=== PATIENT | male | born 1990 | race Hispanic/Latino ===

== ENCOUNTER 2019-12-26 12:56 | Inpatient (IN) | payer SELFPAY ==
--- OUTSIDE RECORDS SUMMARY | 2019-12-26 13:09 | XMS REPORT | Continuity of Care Document ---
:[address] [facility] t Address [address] [place] [address] [place] [id number] Care Team Providers Name Role Phone Unavailable Unavailable Unavailable Problems This patient has no known problems. Allergies, Adverse Reactions, Alerts This patient has no known allergies or adverse reactions. Medications This patient has no known medications. Procedures This patient has no known procedures. Results This patient has no known results.
[2019-12-26] MEDS ORDERED: VANCOMYCIN 1.5 GM in NA CHLORIDE 0.9% 500 ML IVPB ONE (14:15)
--- NOTE | 2019-12-26 14:41 | RAD REPORT ---
EXAM DESCRIPTION: USExtremity Venous Uni Ltd12/26/2019 2:22 pm CLINICAL HISTORY: left leg pain and swelling. COMPARISON: None. FINDINGS: Echogenic material consistent with thrombus is present within the left popliteal vein. The re is diminished blood flow. The Left common femoral, superficial femoral,and posterior tibial veins are compressible and demonst rate augmentation. Doppler demonstrates good flow. IMPRESSION: Acute/subacute thrombus left popliteal vein
--- NOTE | 2019-12-26 14:41 | RAD REPORT ---
EXAM DESCRIPTION: Christi Faulkner Left12/26/2019 2:29 pm CLINICAL HISTORY: Left leg swelling FINDINGS: No fracture is seen. Edema within soft tissue
[2019-12-26 14:51] LABS: Absolute Lymphocytes (CBC) 2.1 K/uL (0.7-4.9); Basophils % 0.4 % (0-1.3); Hematocrit 47.1 % (39.6-49.0); Lymphocytes % 20.4 % (15.3-44.8); MPV 8.7 fL (7.6-11.3); RBC Red Blood Cell Count 5.51 M/uL (4.33-5.43)
[2019-12-26 14:56] LABS: Protime INR 0.99
[2019-12-26 15:27] LABS: ALT/SGPT 33 U/L (12-78); AST/SGOT 18 U/L (15-37); Alkaline Phosphatase 74 U/L (45-117); BUN Blood Urea Nitrogen 14 mg/dL (7-18); Bicarbonate 30 mmol/L (21-32); Bilirubin Direct < 0.1 mg/dL (0-0.2); Bilirubin Total 0.4 mg/dL (0.2-1.0); Creatine Phosphokinase 194 U/L (39-308); Glucose Level 90 mg/dL (74-106); Potassium 3.9 mmol/L (3.5-5.1); Protein, Total 8.7 g/dL (6.4-8.2); Sodium Level 141 mmol/L (136-145)
--- NOTE | 2019-12-26 15:36 | EDPHYS ---
Physician Documentation [facility] Name: Oniel Arita Age: 29 yrs Sex: Male : 1990 Arrival Date: 12/26/2019 Time: 13:00 Bed 20 Private MD: Joshua Calabrese HPI: 12/25 14:11 This 29 yrs old Male presents to ER via Ambulatory with complaints of Leg snw Swelling. 14:11 The patient presents with swelling, tenderness, drainage from ulceration over past few snw months. The complaints affect the left medial ankle. Context: The problem was sustained at home, resulted from possible a hematoma in Jun. Seen per MD in [place], told he had a blood clot and put him on anticoagulants. Area never improved and then started draining. Denies trauma. Onset: The symptoms/episode began/occurred gradually, 6 month(s) ago. Associated signs and symptoms: Pertinent positives: ulceration with black eschar with drainage beginning 2 months ago. Severity of symptoms: At their worst the symptoms were mild. The patient has not experienced similar symptoms in the past. It is unknown whether or not the patient has recently seen a physician. pt states Td up to date. Historical: - Allergies: 13:43 No Known Allergies; tw2 - Home Meds: 13:43 None [Active]; tw2 - PMHx: 13:43 None; tw2 - PSHx: 13:43 cervical mass removed 11 years ago; tw2 - Immunization history:: Adult Immunizations up to date, Last tetanus immunization: up to date. - Social history:: Smoking status: Patient reports the use of cigarette tobacco products, "i pk every 3 days, i have cut down". ROS: 14:14 Constitutional: Negative for fever, chills, and weight loss, Eyes: Negative for injury, snw pain, redness, and discharge, ENT: Negative for injury, pain, and discharge, Neck: Negative for injury, pain, and swelling, Cardiovascular: Negative for chest pain, palpitations, and edema, Respiratory: Negative for shortness of breath, cough, wheezing, and pleuritic chest pain, Abdomen/GI: Negative for abdominal pain, nausea, vomiting, diarrhea, and constipation, Back: Negative for injury and pain, : Negative for injury, bleeding, discharge, and swelling, MS/Extremity: Negative for injury and deformity, Neuro: Negative for headache, weakness, numbness, tingling, and seizure, Psych: Negative for depression, anxiety, suicide ideation, homicidal ideation, and hallucinations. 14:14 Skin: Positive for swelling, ulceration, of the left medial ankle, discharge. Exam: 14:15 Constitutional: This is a well developed, well nourished patient who is awake, alert, snw and in no acute distress. Head/Face: Normocephalic, atraumatic. Eyes: Pupils equal round and reactive to light, extra-ocular motions intact. Lids and lashes normal. Conjunctiva and sclera are non-icteric and not injected. Cornea within normal limits. Periorbital areas with no swelling, redness, or edema. ENT: Nares patent. No nasal discharge, no septal abnormalities noted. Tympanic membranes are normal and external auditory canals are clear. Oropharynx with no redness, swelling, or masses, exudates, or evidence of obstruction, uvula midline. Mucous membranes moist. Neck: Trachea midline, no thyromegaly or masses palpated, and no cervical lymphadenopathy. Supple, full range of motion without nuchal rigidity, or vertebral point tenderness. No Meningismus. Chest/axilla: Normal chest wall appearance and motion. Nontender with no deformity. No lesions are appreciated. Cardiovascular: Regular rate and rhythm with a normal S1 and S2. No gallops, murmurs, or rubs. Normal PMI, no JVD. No pulse deficits. Respiratory: Lungs have equal breath sounds bilaterally, clear to auscultation and percussion. No rales, rhonchi or wheezes noted. No increased work of breathing, no retractions or nasal flaring. Abdomen/GI: Soft, non-tender, with normal bowel sounds. No distension or tympany. No guarding or rebound. No evidence of tenderness throughout. Back: No spinal tenderness. No costovertebral tenderness. Full range of motion. Neuro: Awake and alert, GCS 15, oriented to person, place, time, and situation. Cranial nerves II-XII grossly intact. Motor strength 5/5 in all extremities. Sensory grossly intact. Cerebellar exam normal. Normal gait. Psych: Awake, alert, with orientation to person, place and time. Behavior, mood, and affect are within normal limits. 14:15 Skin: Appearance: normal except for affected area, ulceration to left medial ankle with eschar. + areas x 2 with serous discharge. Vital Signs: 13:37 BP 131 / 99; Pulse 69; Resp 17; Temp 98.5(O); Pulse Ox 96% on R/A; Weight 108.86 kg tw2 (R); Height 6 ft. 3 in. (190.50 cm); Pain 9/10; 14:27 BP 122 / 91; Pulse 61; Resp 17; Pulse Ox 99% on R/A; tw2 15:20 BP 122 / 91; Pulse 61; Resp 17; Pulse Ox 97% on R/A; tw2 13:37 Body Mass Index 30.00 (108.86 kg, 190.50 cm) tw2 13:37 "9/10 but only when i am standing" tw2 MDM: 13:25 Patient medically screened. snw 14:53 Data reviewed: vital signs, nurses notes. Data interpreted: Pulse oximetry: on room air snw is 99 %. Interpretation: normal. Counseling: I had a detailed discussion with the patient and/or guardian regarding: the historical points, exam findings, and any diagnostic results supporting the discharge/admit diagnosis, lab results, radiology results, the need for further work-up and treatment in the hospital. 12/25 13:48 Order name: C-Reactive Protein; Complete Time: 15:31 snw 12/25 13:48 Order name: Basic Metabolic Panel; Complete Time: 15:31 snw 12/25 13:48 Order name: Blood Culture Adult (2) snw 12/25 13:48 Order name: CBC with Diff; Complete Time: 15:02 snw 12/25 13:48 Order name: CPK; Complete Time: 15:31 snw 12/25 13:48 Order name: LFT's; Complete Time: 15:31 snw 12/25 13:48 Order name: US Extremity Venous Unilateral Ltd; Complete Time: 14:48 snw 12/25 13:48 Order name: Procalcitonin; Complete Time: 15:31 snw 12/25 13:48 Order name: Protime (+inr); Complete Time: 15:02 snw 12/25 13:48 Order name: Ptt, Activated; Complete Time: 15:02 snw 12/25 13:48 Order name: Cardiac monitoring; Complete Time: 15:23 snw 12/25 13:48 Order name: IV Saline Lock - Large Bore; Complete Time: 14:43 snw 12/25 13:48 Order name: Tib Fib Left XRAY; Complete Time: 14:48 snw 12/25 13:48 Order name: Labs collected and sent; Complete Time: 14:44 snw 12/25 13:48 Order name: O2 Per Protocol; Complete Time: 13:57 snw 12/25 13:48 Order name: O2 Sat Monitoring; Complete Time: 13:57 snw Administered Medications: 14:40 Drug: vancoMYCIN 1.5 grams Route: IVPB; Infused Over: 2 hrs; Site: right antecubital; jl7 16:20 Follow up: Response: No adverse reaction; IV Status: Completed infusion tw2 Disposition: 12/26 06:36 Co-signature as Attending Physician, Joshua Rivera MD I agree with the assessment and ra plan of care. Disposition: 12/26/19 15:34 Hospitalization ordered by Prince Lu for Inpatient Admission. 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 - Bed requested for Telemetry/MedSurg (Inpatient). - Status is Inpatient Admission. jl7 - Condition is Stable. - Problem is an acute exacerbation. - Symptoms are unchanged. Signatures: Dispatcher [employer] Cheyenne Jacob RN RN dw Anderson, Corey, MD MD cha Waters, Shelly, NATURAL RESOURCES PROFESSOR-C NATURAL RESOURCES PROFESSOR-Csnw Joan Roche RN RN tw2 Warren Harrell RN RN jl7 Corrections: (The following items were deleted from the chart) 12/25 16:10 15:34 Hospitalization Ordered by Prince Lu EVANS for Inpatient Admission. 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 Bed requested for Telemetry/MedSurg (Inpatient). Status is Inpatient Admission. Condition is Stable. Problem is an acute exacerbation. Symptoms are unchanged. snw 17:46 16:10 12/26/2019 15:34 Hospitalization Ordered by Prince Lu EVANS for Inpatient jl7 Admission. 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 Bed requested for Telemetry/MedSurg (Inpatient). Status is Inpatient Admission. Condition is Stable. Problem is an acute exacerbation. Symptoms are unchanged. dw
--- NOTE | 2019-12-26 16:08 | P.HP ---
Certification for Inpatient Patient admitted to: Inpatient With expected LOS: >2 Midnights Patient will require the following post-hospital care: None Practitioner: I am a practitioner with admitting privileges, knowledge of patient current condition, hospital course, and medical plan of care. Services: Services provided to patient in accordance with Admission requirements found in Title 42 Section 412.3 of the Code of Federal Regulations Patient History Date of Service: 12/26/19 Primary Care Provider: none Reason for admission: DVT, venous stasis ulcer with cellulitis History of Present Illness: 29-year-old male with no significant past medical history presents the emergency department for left lower extremity cellulitis. Patient reports that in June of this year he is diagnosed with a DVT while he is in [place]. Patient reports that he took an unknown medication for an unknown amount of time for this DVT. Patient then never followed up with anybody and reports that he noticed an area of ulceration in his left lower extremity appears sometime after that. Patient reports that the last 1 week he has noticed increased redness, swelling, pain in the left lower extremity around this area of ulceration. The patient was evaluated in the emergency department and had repeat ultrasound of left lower extremity which did show a subacute/acute DVT in the popliteal vein. Allergies No Known Allergies Allergy (Unverified 12/26/19 14:03) Home medications list reviewed: Yes - Past Medical/Surgical History Has patient received pneumonia vaccine in the past: No Diabetic: No -: DVT -: none Psychosocial/ Personal History: Patient lives at home with his mother - Family History Mother -: Diabetes - Social History Smoking Status: Heavy Tobacco smoker (>10 cigarettes/day) Alcohol use: No CD- Drugs: No Caffeine use: Yes Place of Residence: Home Review of Systems 10-point ROS is otherwise unremarkable Musculoskeletal: Leg Pain Integumentary: As per HPI Physical Examination - Physical Exam General: Alert, In no apparent distress, Oriented x3 HEENT: Atraumatic, Normocephalic, PERRLA Neck: Supple Respiratory: Clear to auscultation bilaterally, Normal air movement Cardiovascular: No edema, Regular rate/rhythm, Normal S1 S2 Capillary refill: <2 Seconds Gastrointestinal: Normal bowel sounds, Soft and benign Musculoskeletal: Erythema, Tenderness, Warmth (Left lower extremity) Integumentary: Tenderness/swelling (Left lower extremity), Erythema, Warmth, Venous stasis ulcer Neurological: Normal gait, Normal speech, Normal strength at 5/5 x4 extr, Normal tone - Studies Laboratory Data (last 24 hrs) 12/26/19 14:30: PT 11.7, INR 0.99, APTT 35.7 12/26/19 14:30: WBC 10.2, Hgb 15.8, Hct 47.1, Plt Count 235 12/26/19 14:30: Sodium 141, Potassium 3.9, BUN 14, Creatinine 0.85, Glucose 90, Total Bilirubin 0.4, AST 18, ALT 33, Alkaline Phosphatase 74 Assessment and Plan - Plan Assessment Venous stasis ulcer to the left lower extremity with surrounding cellulitis Acute/subacute DVT left popliteal vein Tobacco abuse Plan Venous stasis ulcer to the left lower extremity with surrounding cellulitis: Patient had x-ray of the left tib-fib that did not show any signs of osteomyelitis. Continue with vancomycin for IV antibiotic at this time. Infectious disease consult in place. Appreciate further input from infectious disease. Patient counseled on need to abstain from tobacco use. Acute/subacute DVT left popliteal vein: Will start with full anticoagulation Lovenox 1 milligram/kilogram twice daily. Depending on patient's insurance status will transfer over to [facility]. Tobacco abuse: Patient counseled on need to abstain from tobacco use. Discharge Plan: Home Plan to discharge in: 72 Hours - Advance Directives Does patient have a Living Will: No Does patient have a Durable POA for Healthcare: No - Code Status/Comfort Care Code Status Assessed: Yes (Full Code) Critical Care: No Time Spent Managing Pts Care (In Minutes): 55
[2019-12-26] MEDS ORDERED: ACETAMINOPHEN 500 MG TAB PO PRN (16:25)
[2019-12-26] MEDS ORDERED: ONDANSETRON 4 MG/2 ML VIAL IV PRN (16:25)
[2019-12-26] MEDS ORDERED: HYDROCODONE/APAP 7.5/325 MG TAB PO PRN (16:25)
[2019-12-26] MEDS ORDERED: VANCOMYCIN 500 MG in NA CHLORIDE 0.9% 100 ML IVPB ONE (17:00)
[2019-12-26 17:20] VITALS: BMI 29.9
--- NOTE | 2019-12-26 17:48 | ER ---
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 in [place] in June for it and the told me i had a blood clot and i took a blood thinner for a month, i think i finished that in July. Coronavirus screen: Client indicates they have traveled out of the [place] in the last 14 days. Client traveled to: [place]. Ebola Screen: Patient denies travel to an Ebola-affected area in the 21 days before illness onset. Initial Sepsis Screen: Does the patient meet any 2 criteria? No. Patient's initial sepsis screen is negative. Does the patient have a suspected source of infection? No. Patient's initial sepsis screen is negative. Risk Assessment: Do you want to hurt yourself or someone else? Patient reports no desire to harm self or others. Onset of symptoms was December 26, 2019. 13:37 Method Of Arrival: Ambulatory tw2 13:37 Acuity: CONCETTA 3 tw2 Triage Assessment: 13:42 General: Appears in no apparent distress. Behavior is calm, cooperative, appropriate tw2 for age. Pain: Complains of pain in left amanda. Derm: redness and swelling noted to LEFT lower extremity. Historical: - Allergies: 13:43 No Known Allergies; tw2 - Home Meds: 13:43 None [Active]; tw2 - PMHx: 13:43 None; tw2 - PSHx: 13:43 cervical mass removed 11 years ago; tw2 - Immunization history:: Adult Immunizations up to date, Last tetanus immunization: up to date. - Social history:: Smoking status: Patient reports the use of cigarette tobacco products, "i pk every 3 days, i have cut down". Screenin:43 Abuse screen: Denies threats or abuse. Nutritional screening: No deficits noted. tw2 Tuberculosis screening: No symptoms or risk factors identified. Fall Risk None identified. Assessment: 13:36 Reassessment: provider at bedside at this time. tw2 13:45 General: Appears in no apparent distress. Behavior is calm, cooperative, appropriate tw2 for age. Pain: Complains of pain in left amanda. Neuro: Level of Consciousness is awake, alert, obeys commands, Oriented to person, place, time, situation. Cardiovascular: Heart tones S1 S2 Patient's skin is warm and dry. Respiratory: Airway is patent Respiratory effort is even, unlabored, Respiratory pattern is regular, symmetrical, Breath sounds are clear bilaterally. GI: No signs and/or symptoms were reported involving the gastrointestinal system. Abdomen is flat, Bowel sounds present X 4 quads. : No signs and/or symptoms were reported regarding the genitourinary system. EENT: No signs and/or symptoms were reported regarding the EENT system. Derm: redness and swelling noted to LEFT lower extremity, serous drainage noted. 14:27 Reassessment: Patient appears in no apparent distress at this time. No changes from tw2 previously documented assessment. Patient and/or family updated on plan of care and expected duration. Pain level reassessed. Patient is alert, oriented x 3, equal unlabored respirations, skin warm/dry/pink. 15:20 Reassessment: Patient appears in no apparent distress at this time. No changes from tw2 previously documented assessment. Patient and/or family updated on plan of care and expected duration. Pain level reassessed. Patient is alert, oriented x 3, equal unlabored respirations, skin warm/dry/pink. Vital Signs: 13:37 BP 131 / 99; Pulse 69; Resp 17; Temp 98.5(O); Pulse Ox 96% on R/A; Weight 108.86 kg tw2 (R); Height 6 ft. 3 in. (190.50 cm); Pain 9/10; 14:27 BP 122 / 91; Pulse 61; Resp 17; Pulse Ox 99% on R/A; tw2 15:20 BP 122 / 91; Pulse 61; Resp 17; Pulse Ox 97% on R/A; tw2 13:37 Body Mass Index 30.00 (108.86 kg, 190.50 cm) tw2 13:37 "9/10 but only when i am standing" tw2 ED Course: 13:00 Patient arrived in ED. ag5 13:04 Carline Bergeron FNP-C is PHCP. snw 13:04 Joshua Rivera MD is Attending Physician. snw 13:22 Bed in low position. Call light in reach. tw2 13:29 Joan Roche, RN is Primary Nurse. tw2 13:42 Triage completed. tw2 13:42 Arm band placed on. tw2 14:22 US Extremity Venous Unilateral Ltd In Process Unspecified. EDMS 14:24 Ultrasound completed. Patient tolerated well. aa4 14:29 Tib Fib Left XRAY In Process Unspecified. EDMS 14:30 Inserted saline lock: 20 gauge in right antecubital area, using aseptic technique. jl7 Blood collected. 14:30 Initial lab(s) drawn, by me, sent to lab. First set of blood cultures drawn by me. jl7 14:37 Second set of blood cultures drawn. jl7 15:32 Prince Leigh MD is Hospitalizing Provider. snw 16:21 No provider procedures requiring assistance completed. Patient admitted, IV remains in jl7 place. intact, No redness/swelling at site. Administered Medications: 14:40 Drug: vancoMYCIN 1.5 grams Route: IVPB; Infused Over: 2 hrs; Site: right antecubital; jl7 16:20 Follow up: Response: No adverse reaction; IV Status: Completed infusion tw2 Outcome: 15:34 Decision to Hospitalize by Provider. snw 16:21 Admitted to Med/surg accompanied by ehsan, via stretcher, room 205, with chart, Report jl7 called to YOLANDA Dover 16:21 Condition: stable 16:21 Discharge instructions given to patient, Instructed on the need for admit, Demonstrated understanding of instructions. 17:46 Patient left the ED. jl7 Signatures: Dispatcher [employer] EDDE Carline Bergeron FNP-C CLINICAL RECRUITER-Csnw Leanna Spain aa4 Joan Roche, RN RN tw2 Warren Harrell RN RN jl7 Pamela Daniel ag5
--- NOTE | 2019-12-26 19:04 | RAD REPORT ---
EXAM DESCRIPTION: US - Lower Extremity Artery Uni Ltd - 12/26/2019 6:55 pm CLINICAL HISTORY: Leg pain COMPARISON: None FINDINGS: The waveforms of the left common femoral artery is triphasic. The waveforms of the left superficial femoral, left popliteal, left posterior tibial and left dorsali s pedis arteries are mono and biphasic. No occlusion noted. No high-grade stenosis seen. IMPRESSION: Mild arterial disease. No high-grade stenosis
[2019-12-26] MEDS: Enoxaparin 120 MG/0.8 ML SYR SQ SCH (20:52)
[2019-12-27] MEDS ORDERED: VANCOMYCIN 2 GM in NA CHLORIDE 0.9% 500 ML IVPB SCH (05:00)
[2019-12-27] MEDS: VANCOMYCIN 2 GM in NA CHLORIDE 0.9% 500 ML IVPB SCH ×2 (05:14→16:35)
[2019-12-27 06:12] LABS: Absolute Lymphocytes (CBC) 2.5 K/uL (0.7-4.9); Basophils % 0.5 % (0-1.3); Hematocrit 41.8 % (39.6-49.0); Lymphocytes % 35.6 % (15.3-44.8); MPV 8.5 fL (7.6-11.3); RBC Red Blood Cell Count 4.94 M/uL (4.33-5.43)
[2019-12-27 06:21] LABS: BUN Blood Urea Nitrogen 14 mg/dL (7-18); Bicarbonate 25 mmol/L (21-32); Glucose Level 110 mg/dL (74-106); Magnesium 2.2 mg/dL (1.8-2.4); Potassium 4.3 mmol/L (3.5-5.1); Sodium Level 140 mmol/L (136-145)
[2019-12-27] MEDS: Enoxaparin 120 MG/0.8 ML SYR SQ SCH ×2 (08:21→20:40)
--- NOTE | 2019-12-27 09:16 | P.PN ---
Subjective Date of Service: 12/27/19 Primary Care Provider: none Chief Complaint: DVT, venous stasis ulcer with cellulitis Subjective: Improving Review of Systems 10-point ROS is otherwise unremarkable Musculoskeletal: Leg Pain Integumentary: As per HPI Physical Examination - Vital Signs Temperature: 97.4 F Blood Pressure: 126/66 Pulse: 64 Respirations: 20 Pulse Ox (%): 96 - Physical Exam General: Alert, In no apparent distress, Oriented x3 HEENT: Atraumatic, Normocephalic, PERRLA Neck: Supple Respiratory: Clear to auscultation bilaterally, Normal air movement Cardiovascular: No edema, Normal S1 S2 Capillary refill: <2 Seconds Gastrointestinal: Normal bowel sounds, Soft and benign Musculoskeletal: Erythema, Tenderness, Warmth (Left lower extremity) Integumentary: Tenderness/swelling, Erythema, Venous stasis ulcer (Left lower extremity) Neurological: Normal speech, Normal strength at 5/5 x4 extr - Studies Laboratory Data (last 24 hrs) 12/26/19 14:30: PT 11.7, INR 0.99, APTT 35.7 12/26/19 14:30: WBC 10.2, Hgb 15.8, Hct 47.1, Plt Count 235 12/26/19 14:30: Sodium 141, Potassium 3.9, BUN 14, Creatinine 0.85, Glucose 90, Total Bilirubin 0.4, AST 18, ALT 33, Alkaline Phosphatase 74 Assessment & Plan Discharge Plan: Home Plan to discharge in: 24 Hours - Code Status/Comfort Care Code Status Assessed: Yes (Patient is full code) Physician Review Additional Text: Assessment Venous stasis ulcer to the left lower extremity with surrounding cellulitis Acute/subacute DVT left popliteal vein Tobacco abuse Plan Venous stasis ulcer to the left lower extremity with surrounding cellulitis: Patient had x-ray of the left tib-fib that did not show any signs of osteomyeli tis. Arterial ultrasound of the left lower extremity shows triphasic flow proximal and mono and biphasic distal. No high-grade stenosis. Continue with vancomycin for IV antibiotic at this time. Infectious disease consult in place. Appreciate further input from infectious disease. Patient counseled on need to abstain from tobacco use. Acute/subacute DVT left popliteal vein: Will start with full anticoagulation Lovenox 1 milligram/kilogram twice daily. Depending on patient's insurance status will transfer over to [facility]. Tobacco abuse: Patient counseled on need to abstain from tobacco use. Critical Care: No Time Spent Managing Pts Care (In Minutes): 55
--- NOTE | 2019-12-27 10:13 | P.CNS ---
Date of Consult: 12/27/19 Subjective: Patient is a 29-year-old male with no significant past medical history who presents with worsening left lower extremity wound. Patient reports is diagnosed with DVT to left leg in June of this year shortly after developing left lower extremity wound that has progressively gotten worse. I was consulted for left lower extremity cellulitis and left lower extremity wound. Past medical/surgical history: DVT Social history: Reports smokes cigarettes 1 pack per day Family history: Mother with diabetes Allergies No Known Allergies Allergy (Unverified 12/26/19 14:03) Active Medications Acetaminophen (Tylenol -Extra Strength) 500 mg PO Q4HP PRN PRN Reason: TEMP > 100' F Stop: 01/25/20 16:26 Hydrocodone Bitart/Acetaminophen ([place] 7.5/325 Mg) 1 tab PO Q6H PRN PRN Reason: Pain scale 5-7 (Moderate) Stop: 01/25/20 16:26 Enoxaparin Sodium (Lovenox 120 Mg Inj) 110 mg SQ Q12HR [facility] Stop: 01/25/20 21:01 Last Admin: 12/27/19 08:21 Dose: 110 mg Documented by: Vancomycin HCl 2 gm/ Sodium (Chloride) 500 mls @ 250 mls/hr IVPB Q12H RAJI; Protocol Stop: 01/26/20 05:01 Last Admin: 12/27/19 05:14 Dose: 500 mls Documented by: Ondansetron HCl (Zofran) 4 mg IV Q6HP PRN PRN Reason: NAUSEA / VOMITING Stop: 01/25/20 16:26 Sodium Chloride (Normal Saline Flush) 10 ml IV BID [facility] Stop: 01/25/20 21:01 Last Admin: 12/27/19 08:22 Dose: 10 ml Documented by: ROS: CV: Denies chest pain RESP: Denies shortness of breath and cough : Denies dysuria GI: Denies nausea and diarrhea, reports good appetite Extremities: Reports swelling to left lower extremity that has worsened since June Skin: Reports left lower extremity wound since June, reports pain to wound that feels like pins and needles Objective: Temp Pulse Resp BP Pulse Ox 97.4 F 64 20 126/66 96 12/27/19 09:16 12/27/19 09:16 12/27/19 09:16 12/27/19 09:16 12/27/19 09:16 Labs: Sodium 140, potassium 4.3, BUN 14, creatinine 0.75, WBC 6.9, hemoglobin 14.4, hematocrit 41.8 Xray Tibia/fibula 12/25: EXAM DESCRIPTION: RADTib Fib Left12/26/2019 2:29 pm CLINICAL HISTORY: Left leg swelling FINDINGS: No fracture is seen. Edema within soft tissue Extremity venous study 12/25: EXAM DESCRIPTION: USExtremity Venous Uni Ltd12/26/2019 2:22 pm CLINICAL HISTORY: left leg pain and swelling. COMPARISON: None. FINDINGS: Echogenic material consistent with thrombus is present within the left popliteal vein. There is diminished blood flow. The Left common femoral, superficial femoral,and posterior tibial veins are compressible and demonstrate augmentation. Doppler demonstrates good flow. IMPRESSION: Acute/subacute thrombus left popliteal vein ROS: CV; S1, S2 RESP: Good breath sounds ABD: Nontender, bowel sounds present Extremities: Edema to LLE, good hair growth to BLLE, weak pedal pulses Skin: He erythema, warmth and swelling 2 left lower extremity, left lower extremity stasis ulcer wound bed with scabbing Assessment and plan: Cellulitis to LLE LLE Stasis ulcer, recommend to apply betadine daily Afebrile, no leukocytosis IV Vancomycin day 2, Recommend to continue for total of 2 weeks Left popliteal Thrombus, on lovenox Educated the patient to keep leg elevated Will continue to monitor Thank you for consult Patient discussed with Dr. morin
[2019-12-27] MEDS ORDERED: WARFARIN SODIUM 5 MG TAB PO SCH (17:00)
[2019-12-28 04:14] LABS: Protime INR 1.03
[2019-12-28 04:16] LABS: Absolute Lymphocytes (CBC) 2.5 K/uL (0.7-4.9); Basophils % 0.7 % (0-1.3); Lymphocytes % 35.7 % (15.3-44.8); MPV 8.7 fL (7.6-11.3); RBC Red Blood Cell Count 4.92 M/uL (4.33-5.43)
[2019-12-28 04:28] LABS: BUN Blood Urea Nitrogen 14 mg/dL (7-18); Bicarbonate 26 mmol/L (21-32); Glucose Level 116 mg/dL (74-106); Potassium 4.1 mmol/L (3.5-5.1); Sodium Level 138 mmol/L (136-145)
[2019-12-28] MEDS: VANCOMYCIN 2 GM in NA CHLORIDE 0.9% 500 ML IVPB SCH (05:12)
[2019-12-28] MEDS: Enoxaparin 120 MG/0.8 ML SYR SQ SCH ×2 (08:03→21:37)
--- NOTE | 2019-12-28 09:22 | P.PN ---
Subjective Date of Service: 12/28/19 Primary Care Provider: none Chief Complaint: DVT, venous stasis ulcer with cellulitis Subjective: Improving Review of Systems 10-point ROS is otherwise unremarkable Integumentary: As per HPI Physical Examination - Vital Signs Temperature: 97.1 F Blood Pressure: 116/63 Pulse: 52 Respirations: 14 Pulse Ox (%): 100 - Physical Exam General: Alert, In no apparent distress HEENT: Atraumatic, PERRLA, EOMI Neck: Supple, JVD not distended Respiratory: Clear to auscultation bilaterally, Normal air movement Cardiovascular: Regular rate/rhythm, Normal S1 S2 Gastrointestinal: Normal bowel sounds, No tenderness Musculoskeletal: No tenderness Integumentary: Other (There is cellulitis surrounding the venous stasis ulcer is improving.) Neurological: Normal speech, Normal tone, Normal affect Lymphatics: No axilla or inguinal lymphadenopathy - Studies Medications List Reviewed: Yes Assessment & Plan Discharge Plan: Home Plan to discharge in: 24 Hours - Code Status/Comfort Care Code Status Assessed: Yes (Patient is full code) Physician Review Additional Text: Assessment Venous stasis ulcer to the left lower extremity with surrounding cellulitis Acute/subacute DVT left popliteal vein Tobacco abuse Plan Venous stasis ulcer to the left lower extremity with surrounding cellulitis: Patient had x-ray of the left tib-fib that did not show any signs of osteomyelitis. Arterial ultrasound of the left lower extremity shows triphasic flow proximal and mono and biphasic distal. No high-grade stenosis. Continue with vancomycin for IV antibiotic at this time. Infectious Disease recommends IV vancomycin for 2 weeks, this may not be possible due to patient's insurance and financial status. Patient may require being discharged on 2 weeks of oral antibiotics and close followup. Possible discharge as early as tomorrow. Acute/subacute DVT left popliteal vein: Will start with full anticoagulation Lovenox 1 milligram/kilogram twice daily. Will work with social work to attempt to have patient placed on Eliquis. Tobacco abuse: Patient counseled on need to abstain from tobacco use. Critical Care: No Time Spent Managing Pts Care (In Minutes): 55
--- NOTE | 2019-12-28 10:56 | P.PN ---
Date of Service: 12/28/19 Subjective: Patient is a 29-year-old male with no significant past medical history who presents with worsening left lower extremity wound. Patient reports is diagnosed with DVT to left leg in June of this year shortly after developing left lower extremity wound that has progressively gotten worse. I was consulted for left lower extremity cellulitis and left lower extremity wound. The patient examined at bedside. Reports pain to left lower extremity improving. Denies nausea, diarrhea and fever. Objective: Temp Pulse Resp BP Pulse Ox 97.1 F 52 14 116/63 100 12/28/19 09:22 12/28/19 09:22 12/28/19 09:22 12/28/19 09:22 12/28/19 09:22 Labs: Sodium 138, potassium 4.1, BUN 14, creatinine 0.86, WBC 6.9, hemoglobin 14.1, hematocrit 42 Xray Tibia/fibula 12/25: EXAM DESCRIPTION: RADTib Fib Left12/26/2019 2:29 pm CLINICAL HISTORY: Left leg swelling FINDINGS: No fracture is seen. Edema within soft tissue Extremity venous study 12/25: EXAM DESCRIPTION: USExtremity Venous Uni Ltd12/26/2019 2:22 pm CLINICAL HISTORY: left leg pain and swelling. COMPARISON: None. FINDINGS: Echogenic material consistent with thrombus is present within the left popliteal vein. There is diminished blood flow. The Left common femoral, superficial femoral,and posterior tibial veins are compressible and demonstrate augmentation. Doppler demonstrates good flow. IMPRESSION: Acute/subacute thrombus left popliteal vein ROS: CV; S1, S2 RESP: Good breath sounds ABD: Nontender, bowel sounds present Extremities: Edema to LLE, good hair growth to BLLE, weak pedal pulses Skin: erythema, warmth and swelling to left lower extremity, left lower extremity stasis ulcer wound bed with scabbing Assessment and plan: Cellulitis to LLE LLE Stasis ulcer, recommend to apply betadine daily Afebrile, no leukocytosis IV Vancomycin day 3 Patient without any insurance, upon discharge can change to PO Clindamycin or Doxycycline Patient will need total of 2 weeks of antibiotics Left popliteal Thrombus, on lovenox Educated the patient to keep leg elevated Will continue to monitor Patient discussed with Dr. morin
[2019-12-28] MEDS: VANCOMYCIN 2.25 GM in NA CHLORIDE 0.9% 500 ML IVPB SCH (17:13)
[2019-12-29 04:55] LABS: Absolute Lymphocytes (CBC) 2.5 K/uL (0.7-4.9); Basophils % 0.8 % (0-1.3); Hematocrit 41.7 % (39.6-49.0); Lymphocytes % 35.3 % (15.3-44.8); MPV 8.6 fL (7.6-11.3)
[2019-12-29 05:14] LABS: BUN Blood Urea Nitrogen 14 mg/dL (7-18); Bicarbonate 27 mmol/L (21-32); Glucose Level 116 mg/dL (74-106); Potassium 4.3 mmol/L (3.5-5.1); Sodium Level 143 mmol/L (136-145)
[2019-12-29 05:20] LABS: Protime INR 1.03
[2019-12-29] MEDS: VANCOMYCIN 2.25 GM in NA CHLORIDE 0.9% 500 ML IVPB SCH (05:24)
[2019-12-29] MEDS: Enoxaparin 120 MG/0.8 ML SYR SQ SCH (08:01)
[2019-12-29 08:35] VITALS: BP 119/56; TEMP 96.8; O2SAT 96
--- NOTE | 2019-12-29 08:58 | P.DS ---
Admission Date: 12/26/19 Discharge Date: 12/29/19 Primary Care Provider: none Disposition: ROUTINE DISCHARGE Discharge Condition: GOOD Reason for Admission: DVT, venous stasis ulcer with cellulitis Consultations: Infectious disease: Dr. Cannon Procedures: Venous ultrasound left lower extremity FINDINGS: Echogenic material consistent with thrombus is present within the l eft popliteal vein. There is diminished blood flow. The Left common femoral, superficial femoral,and posterior tibial veins are compressible and demonstrate augmentation. Doppler demonstrates good flow. IMPRESSION: Acute/subacute thrombus left popliteal vein Arterial ultrasound left lower extremity FINDINGS: The waveforms of the left common femoral artery is triphasic. The waveforms of the left superficial femoral, left popliteal, left posterior tibial and left dorsalis pedis arteries are mono and biphasic. No occlusion noted. No high-grade stenosis seen. IMPRESSION: Mild arterial disease. No high-grade stenosis X-ray tib-fib FINDINGS: No fracture is seen. Edema within soft tissue Brief History of Present Illness: 29-year-old male with no significant past medical history presents the emergency department for left lower extremity cellulitis. Patient reports that in June of this year he is diagnosed with a DVT while he is in [place]. Patient reports that he took an unknown medication for an unknown amount of time for this DVT. Patient then never followed up with anybody and reports that he n oticed an area of ulceration in his left lower extremity appears sometime after that. Patient reports that the last 1 week he has noticed increased redness, swelling, pain in the left lower extremity around this area of ulceration. The patient was evaluated in the emergency department and had repeat ultrasound of left lower extremity which did show a subacute/acute DVT in the popliteal vein. Hospital Course: Patient was admitted for acute/subacute DVT of the left popliteal vein and venous stasis ulcer of left lower extremity with cellulitis. Patient was placed on IV antibiotics with vancomycin and has been on them for the last 3 days. Patient seen by infectious disease during this hospitalization. Cellulitis has significantly improved as well as pain to the left lower extremity. Patient remained on Lovenox 1 milligram/kilogram twice daily throughout the hospitalization. At this point time patient is stable for discharge and can continue with doxycycline 100 mg p.o. twice daily for 14 days. Patient also need to be on Eliquis for a total of 3 months. Patient does not have any insurance but in working with social work was able to provide the patient with a free 1 month prescription and provide him with resources to obtain the additional required dosages. At discharge patient will continue with Eliquis 10 mg twice daily for 7 days followed by 5 mg p.o. twice daily for 3 months. Patient also need to establish himself with a primary care doctor for continuation of anticoagulation therapy after the 1st month. Vital Signs/Physical Exam: Temp Pulse Resp BP Pulse Ox 96.8 F 51 19 119/56 L 97 12/29/19 08:00 12/29/19 08:00 12/29/19 08:00 12/29/19 08:00 12/29/19 08:00 General: Alert, In no apparent distress, Oriented x3 HEENT: Atraumatic, Normocephalic, PERRLA Neck: Supple Respiratory: Clear to auscultation bilaterally, Normal air movement Cardiovascular: No edema Capillary refill: <2 Seconds Gastrointestinal: Normal bowel sounds, Soft and benign Musculoskeletal: No clubbing Integumentary: Venous stasis ulcer, Other (Cellulitis surrounding venous stasis ulcer left lower extremity has significantly improved.) Neurological: Normal gait Laboratory Data at Discharge: WBC 7.2 K/uL (4.3-10.9) 12/29/19 04:40 Hgb 14.2 g/dL (13.6-17.9) 12/29/19 04:40 Hct 41.7 % (39.6-49.0) 12/29/19 04:40 Plt Count 215 K/uL (152-406) 12/29/19 04:40 PT 12.2 SECONDS (9.5-12.5) 12/29/19 04:40 INR 1.03 12/29/19 04:40 APTT 35.7 SECONDS (24.3-36.9) 12/26/19 14:30 Sodium 143 mmol/L (136-145) 12/29/19 04:40 Potassium 4.3 mmol/L (3.5-5.1) 12/29/19 04:40 BUN 14 mg/dL (7-18) 12/29/19 04:40 Creatinine 0.81 mg/dL (0.55-1.3) 12/29/19 04:40 Glucose 116 mg/dL (74-106) H 12/29/19 04:40 Magnesium 2.2 mg/dL (1.8-2.4) 12/27/19 05:40 Total Bilirubin 0.4 mg/dL (0.2-1.0) 12/26/19 14:30 AST 18 U/L (15-37) 12/26/19 14:30 ALT 33 U/L (12-78) 12/26/19 14:30 Alkaline Phosphatase 74 U/L (45-117) 12/26/19 14:30 Home Medications: Apixaban [Eliquis] 5 mg PO BID 30 Days #74 tablet 12/29/19 Doxycycline Hyclate 100 mg PO BID #28 tablet 12/29/19 New Medications: Doxycycline Hyclate 100 mg PO BID #28 tablet Apixaban [Eliquis] 5 mg PO BID 30 Days #74 tablet Patient Discharge Instructions: 1. You will need to find a primary care doctor to establish yourself with, this is very important. 2. Is extremely important to take the blood thinner Eliquis as prescribed. I am giving a 1 month prescription. He will need an additional 2 months of this medication but this prescription will need to be ordered by the primary care physician. 3. It is extremely important she also finished the doxycycline antibiotic. He will be taking this medication twice daily for 14 days. Please follow up with primary care doctor within 1-2 weeks for close monitoring of this wound. 4. Patient was admitted for acute/subacute DVT of the left popliteal vein and venous stasis ulcer of left lower extremity with cellulitis. Patient was placed on IV antibiotics with vancomycin and has been on them for the last 3 days. Patient seen by infectious disease during this hospitalization. Cellulitis has significantly improved as well as pain to the left lower extremity. Patient remained on Lovenox 1 milligram/kilogram twice daily throughout the hospitalization. At this point time patient is stable for discharge and can continue with doxycycline 100 mg p.o. twice daily for 14 days. Patient also need to be on Eliquis for a total of 3 months. Patient does not have any insurance but in working with social work was able to provide the patient with a free 1 month prescription and provide him with resources to obtain the additional required dosages. At discharge patient will continue with Eliquis 10 mg twice daily for 7 days followed by 5 mg p.o. twice daily for 3 months. Patient also need to establish himself with a primary care doctor for continuation of anticoagulation therapy after the 1st month. Diet: Regular Activity: Ad arcelia Time spent managing pt's care (in minutes): 55
== END 2019-12-29 10:00 | disposition home or self-care (01) | DRG 300 ==
LOC: ER 12:56 → 2ND 15:56
PROVIDERS: ADMIT Internal Medicine; ATTEND Internal Medicine
DX: I82.432 Acute embolism and thrombosis of left popliteal vein (principal); L03.116 Cellulitis of left lower limb; L97.829 Non-pressure chronic ulcer of other part of left lower leg with unspecified severity; F17.210 Nicotine dependence, cigarettes, uncomplicated; I83.028 Varicose veins of left lower extremity with ulcer other part of lower leg; Z86.718 Personal history of other venous thrombosis and embolism
CPT/HCPCS: 36415; 80048; 80076; 80202; 82550; 83735; 84145; 85025; 85610; 85730; 86140; 87040; 93926; 93971; 96365; 96366; 99285; J1650; J3370; J7040